=== PATIENT | male | born 1960 | race Two or more races ===

== ENCOUNTER 2019-04-13 14:02 | Emergency (ER) | payer OTHER ==
[~2019-04-13] VITALS: Ht 165.1 cm; Wt 77.1 kg
[2019-04-13] MEDS ORDERED: cloNIDine HCL 0.1 MG TAB PO ONE (15:00)
[2019-04-13] MEDS ORDERED: HYDROcodone-ACET 10/325MG TAB PO ONE (16:15)
[2019-04-13 16:39] VITALS: BP 146/98
== END 2019-04-13 16:42 | disposition home or self-care (01) ==
LOC: ER 14:02
DX: B02.9 Zoster without complications (principal); I10 Essential (primary) hypertension; Z87.891 Personal history of nicotine dependence

== ENCOUNTER 2022-11-20 11:30 | Emergency (ER) | payer OTHER ==
[~2022-11-20] VITALS: Ht 165.1 cm; Wt 76.3 kg
[2022-11-20 16:14] VITALS: BP 144/96; PULSE 68; RESP 18; TEMP 99.1; O2SAT 98
== END 2022-11-20 16:14 | disposition left against medical advice (07) ==
LOC: ER 11:30
DX: J02.9 Acute pharyngitis, unspecified (principal); R50.9 Fever, unspecified; M79.10 Myalgia, unspecified site; Z53.21 Procedure and treatment not carried out due to patient leaving prior to being seen by health care provider